=== PATIENT | male | born 1980 | race Caucasian/White ===

== ENCOUNTER 2017-11-19 11:46 | Emergency (ER) | payer OTHER ==
[2017-11-19 11:54] VITALS: PULSE 62; RESP 16; TEMP 98.4
[2017-11-19] MEDS ORDERED: RIVAROXABAN 15 MG TAB PO ONE (13:06)
--- NOTE | 2017-11-19 13:06 | EDPHY ---
H & P Stated Complaint: l knee inj 11/10 now with dvt l calf Time Seen by Provider: 11/19/17 13:01 HPI/ROS: CHIEF COMPLAINT: DVT HISTORY OF PRESENT ILLNESS: The patient is a 37-year-old man who works at the [employer]. He had an injury on the causing ACL and MCL tear in his knee. He has been wearing a brace. He has developed some left calf pain and was seen at [facility] today and had an ultrasound that revealed a DVT. He was sent here for treatment. He denies chest pain or shortness of breath. He denies any other significant medical history. REVIEW OF SYSTEMS: Constitutional: denies: chills, fever, recent illness, recent injury EENTM: denies: blurred vision, double vision, nose congestion Respiratory: denies: cough, shortness of breath Cardiac: denies: chest pain, irregular heart rate, lightheadedness, palpitations Gastrointestinal/Abdominal: denies: abdominal pain, diarrhea, nausea, vomiting, blood streaked stools Genitourinary: denies: dysuria, frequency, hematuria, pain Musculoskeletal: See HPI Skin: denies: lesions, rash, jaundice, bruising Neurological: denies: headache, numbness, paresthesia, tingling, dizziness, weakness Hematologic/Lymphatic: denies: blood clots, easy bleeding, easy bruising Immunologic/allergic: denies: HIV/AIDS, transplant EXAM: GENERAL: Well-appearing, well-nourished and in no acute distress. HEAD: Atraumatic, normocephalic. EYES: Pupils equal round and reactive to light, extraocular movements intact, sclera anicteric, conjunctiva are normal. ENT: TMs normal, nares patent, oropharynx clear without exudates. Moist mucous membranes. NECK: Normal range of motion, supple without lymphadenopathy or JVD. LUNGS: Breath sounds clear to auscultation bilaterally and equal. No wheezes rales or rhonchi. HEART: Regular rate and rhythm without murmurs, rubs or gallops. ABDOMEN: Soft, nontender, normoactive bowel sounds. No guarding, no rebound. No masses appreciated. BACK: No CVA tenderness, no spinal tenderness, step-offs or deformities EXTREMITIES: Left calf pain and mild swelling. Mild pain and swelling at the knee as well which is baseline since his injury. NEUROLOGICAL: Cranial nerves II through XII grossly intact. Normal speech, normal gait. 5/5 strength, normal movement in all extremities, normal sensation PSYCH: Normal mood, normal affect. SKIN: Warm, dry, normal turgor, no visible rashes or lesions. Source: Patient Exam Limitations: No limitations - Personal History Current Tetanus/Diphtheria Vaccine: Yes - Medical/Surgical History Hx Asthma: No Hx Chronic Respiratory Disease: No Hx Diabetes: No Hx Cardiac Disease: No Hx Renal Disease: No Hx Cirrhosis: No Hx Alcoholism: No Hx HIV/AIDS: No Hx Splenectomy or Spleen Trauma: No Other PMH: l shoulder surd/appy - Family History Significant Family History: No pertinent family hx - Social History Smoking Status: Former smoker Alcohol Use: Sober Drug Use: None Constitutional: Initial Vital Signs Temperature (C) 36.9 C 11/19/17 11:51 Heart Rate 62 11/19/17 11:51 Respiratory Rate 16 11/19/17 11:51 Blood Pressure 118/75 11/19/17 11:51 O2 Sat (%) 98 11/19/17 11:51 O2 Delivery Mode Room Air Allergies/Adverse Reactions: No Known Allergies Allergy (Unverified 11/19/17 11:49) Home Medications: Medication Instructions Recorded IBUPROFEN 11/19/17 Rivaroxaban [Xarelto 15mg (*)] 15 mg PO BID #40 tab 11/19/17 Medical Decision Making ED Course/Re-evaluation: Will review the patient's images. He brought a DVT. I will start him on Xarelto until he follows up with his [facility] doctors and Orthopedics. 2:00 p.m. we discussed the patient's lab results. I will start him on Xarelto. He will likely need to transition to Lovenox prior to knee surgery which is planned for 1 month from now but I told him to have a discussion about this with his surgeon who will be Dr. Meyer. He understands and agrees with this plan. Differential Diagnosis: Partial list of the Differential diagnosis considered include but were not limited to; DVT, contusion and although unlikely based on the history and physical exam, I also considered infection, vascular injury. I discussed these differential diagnoses and the plan with the patient as well as the usual and expected course. The patient understands that the diagnosis is provisional and that in medicine we are not always correct and that further workup is often warranted. Usual and customary warnings were given. All of the patient's questions were answered. The patient was instructed to return to the emergency department should the symptoms at all worsen or return, otherwise to followup with the physician as we discussed. - Data Points Laboratory Results: Laboratory Results 11/19/17 13:10 11/19/17 13:10 11/19/17 11/19/17 11/19/17 14:23 13:10 13:10 WBC 5.98 10^3/uL 10^3/uL (3.80-9.50) RBC 5.34 10^6/uL 10^6/uL (4.40-6.38) Hgb 15.4 g/dL g/dL (13.7-17.5) Hct 44.8 % % (40.0-51.0) MCV 83.9 fL fL (81.5-99.8) MCH 28.8 pg pg (27.9-34.1) MCHC 34.4 g/dL g/dL (32.4-36.7) RDW 12.8 % % (11.5-15.2) Plt Count 292 10^3/uL 10^3/uL (150-400) MPV 9.5 fL fL (8.7-11.7) Neut % (Auto) 59.6 % % (39.3-74.2) Lymph % (Auto) 28.8 % % (15.0-45.0) [place] % (Auto) 9.4 % % (4.5-13.0) Eos % (Auto) 1.5 % % (0.6-7.6) Baso % (Auto) 0.5 % % (0.3-1.7) Nucleat RBC Rel Count 0.0 % % (0.0-0.2) Absolute Neuts (auto) 3.57 10^3/uL 10^3/uL (1.70-6.50) Absolute Lymphs (auto) 1.72 10^3/uL 10^3/uL (1.00-3.00) Absolute Monos (auto) 0.56 10^3/uL 10^3/uL (0.30-0.80) Absolute Eos (auto) 0.09 10^3/uL 10^3/uL (0.03-0.40) Absolute Basos (auto) 0.03 10^3/uL 10^3/uL (0.02-0.10) Absolute Nucleated RBC 0.00 10^3/uL 10^3/uL (0-0.01) Immature Gran % 0.2 % % (0.0-1.1) Immature Gran # 0.01 10^3/uL 10^3/uL (0.00-0.10) PT 14.0 SEC SEC (12.0-15.0) INR 1.06 (0.83-1.16) APTT 28.5 SEC SEC (23.0-38.0) Sodium 144 mEq/L mEq/L (134-144) Potassium 4.5 mEq/L mEq/L (3.5-5.2) Chloride 109 mEq/L mEq/L (97-110) Carbon Dioxide 22 mEq/l mEq/l (22-31) Anion Gap 13 mEq/L mEq/L (8-16) BUN 14 mg/dL mg/dL (7-23) Creatinine 0.6 mg/dL L mg/dL (0.7-1.3) Estimated GFR > 60 Glucose 82 mg/dL mg/dL (70-100) Calcium 9.8 mg/dL mg/dL (8.5-10.4) Total Bilirubin 0.4 mg/dL mg/dL (0.1-1.4) Conjugated Bilirubin 0.2 mg/dL mg/dL (0.0-0.5) Unconjugated Bilirubin 0.2 mg/dL mg/dL (0.0-1.1) AST 30 IU/L IU/L (17-59) ALT 48 IU/L IU/L (21-72) Alkaline Phosphatase 71 IU/L IU/L (38-126) Total Protein 6.8 g/dL g/dL (6.3-8.2) Albumin 4.1 g/dL g/dL (3.5-5.0) Medications Given: Discontinued Medications Rivaroxaban (Xarelto) 15 mg PO EDNOW ONE Stop: 11/19/17 13:07 Last Admin: 11/19/17 14:11 Dose: 15 mg Departure - Departure Disposition: Home, Routine, Self-Care Clinical Impression: Left leg DVT Qualifiers: Affected thrombotic vein of extremity: unspecified lower extremity distal vein Chronicity: acute Qualified Code(s): I82.4Z2 - Acute embolism and thrombosis of unspecified deep veins of left distal lower extremity Condition: Fair Instructions: Deep Vein Thrombosis (ED) Referrals: Maria A Jasso MD [Primary Care Provider] - As per Instructions Martin Meyer MD [Medical Doctor] - As per Instructions Prescriptions: Rivaroxaban [Xarelto 15mg (*)] 15 mg PO BID #40 tab
[2017-11-19 13:21] LABS: PLATELET COUNT 292 10^3/uL (150-400)
[2017-11-19 14:38] VITALS: BP 115/72; O2SAT 99
[2017-11-19 14:58] LABS: INR 1.06 (0.83-1.16)
== END 2017-11-19 15:24 | disposition home or self-care (01) ==
DX: I82.4Z2 Acute embolism and thrombosis of unspecified deep veins of left distal lower extremity (principal); Z87.891 Personal history of nicotine dependence

== ENCOUNTER 2017-11-26 10:46 | Emergency (ER) | payer OTHER ==
[2017-11-26 10:56] VITALS: BP 131/76; PULSE 67; RESP 16; TEMP 98.6; O2SAT 97
--- NOTE | 2017-11-26 11:00 | EDPHY ---
H & P Stated Complaint: Sob, x 2 days, fever, chest congestion, pcp sent r/o PE Time Seen by Provider: 11/26/17 10:59 - Personal History Current Tetanus/Diphtheria Vaccine: Unsure Current Tetanus Diphtheria and Acellular Pertussis (TDAP): Unsure - Medical/Surgical History Hx Asthma: No Hx Chronic Respiratory Disease: No Hx Diabetes: No Hx Cardiac Disease: No Hx Renal Disease: No Hx Cirrhosis: No Hx Alcoholism: No Hx HIV/AIDS: No Hx Splenectomy or Spleen Trauma: No Other PMH: l shoulder surd/appy. dvt 12/01, torn acl/mcl, stable tibial fx 12/01 - Social History Smoking Status: Former smoker Constitutional: Initial Vital Signs Temperature (C) 37.0 C 11/26/17 10:50 Heart Rate 67 11/26/17 10:50 Respiratory Rate 16 11/26/17 10:50 Blood Pressure 131/76 H 11/26/17 10:50 O2 Sat (%) 97 11/26/17 10:50 O2 Delivery Mode Room Air Allergies/Adverse Reactions: No Known Allergies Allergy (Unverified 11/19/17 11:49) Home Medications: Medication Instructions Recorded Rivaroxaban [Xarelto 15mg (*)] 15 mg PO BID #40 tab 11/19/17 Medical Decision Making - Diagnostics Imaging: Discussed imaging studies w/ maxillofacial prosthetics dentist Radiologist, I viewed and interpreted images myself ED Course/Re-evaluation: CHIEF COMPLAINT: Cough, PE rule out HISTORY OF PRESENT ILLNESS: The patient is a 37 y/o male arriving with his complaining of a cough and here at the referral of his orthopedist for PE rule out. The patient had a knee injury on 11/10/17, about 3 weeks ago, and 1 week he was diagnosed with a DVT. He was started on Xarelto for this and has been taking it as prescribed. On Wednesday, 5 days ago, he developed a mild cough without hemoptysis. He had a fever the next two days that has since resolved. He believes he has a cold. He denies dyspnea, chest pain, tachycardia. He saw his orthopedist today for scheduled follow up and was referred to the ED for PE rule out despite infectious symptoms and full anticoagulation status. Patient does not believe he had a hypercoagulation panel run previously. He is normally healthy. REVIEW OF SYSTEMS: A 10 point review of systems was performed and is negative with the exception of the elements mentioned in the history of present illness. PHYSICAL EXAM: HR, BP, O2 Sat, RR. Temp noted General Appearance: Alert, well hydrated, appropriate, and non-toxic appearing. Head: Atraumatic without scalp tenderness or obvious injury Eyes: Pupils equal, round, reactive to light and accommodation, EOMI, no trauma , no injection. Nose: Atraumatic, no rhinorrhea, clear. Throat: Mucus membranes moist. Neck: Supple Respiratory: No retractions, no distress, no wheezes, and no accessory muscle use. Lungs are clear to auscultation bilaterally. Cardiovascular: Regular rate and rhythm, no murmurs, rubs, or gallops. Good capillary refill all extremities. Gastrointestinal: Abdomen is soft, nontender, non-distended, no masses, no rebound, no guarding, no peritoneal signs. Musculoskeletal: Normal active ROM of all extremities, atraumatic. Left leg in brace. Neurological: Alert, appropriate, and interactive. The patient has non-focal cranial nerves, motor, sensory, and cerebellar exam. Skin: No rashes, good turgor, no nodules on palpation. Past medical history: DVT following leg injury, torn ACL/MCL and tibial fracture Past surgical history: Shoulder surgery, appendectomy Family history: Noncontributory Social history: at bedside. DIAGNOSTICS/PROCEDURES/CRITICAL CARE TIME: Chest CTA: no PE DIFFERENTIAL DIAGNOSIS: The differential diagnosis for the patient's cough included but was not limited to bronchitis, URI, pneumonia, viral syndrome, PE. MEDICAL DECISION MAKING: This is a healthy 37 y/o male who presents with a one-week history of cough for evaluation of possible PE following leg injury and recent DVT diagnosis. He is fully anticoagulated on Xarelto. His exam is unremarkable. Plan for IV, ISTAT, hypercoag panel, and chest CTA as requested by his orthopedist. Hypercoag panel pending. CTA is negative for PE. Patient will be discharged home with standard cough and URI care and follow up instructions. - Data Points Laboratory Results: 11/26/17 11/26/17 11/26/17 11:20 11:20 11:12 POC Hgb 16.0 gm/dL gm/dL (13.7-17.5) POC Hct 47 % % (40-51) PT 19.7 SEC H SEC (12.0-15.0) INR 1.66 H (0.83-1.16) APTT 36.0 SEC SEC (23.0-38.0) Fibrinogen 414 mg/dL mg/dL (214-456) D-Dimer 0.36 ug/mLFEU ug/mLFEU (0.00-0.50) Protein C Activity Pending Protein S Activity Pending Antithrombin III Activ Pending Factor V Leiden Mutat Pending Factor V Leiden Interp Pending Fact V Leiden Review By Pending POC Sodium 142 mEq/L mEq/L (135-145) POC Potassium 3.9 mEq/L mEq/L (3.3-5.0) POC Chloride 106 mEq/L mEq/L (97-110) POC BUN 20 mg/dL mg/dL (7-23) POC Creatinine 0.6 mg/dL L mg/dL (0.7-1.3) POC Glucose 95 mg/dL mg/dL (70-100) Anti-Cardiolipin IgG Ab Pending Anti-Cardiolipin IgM Ab Pending Medications Given: Discontinued Medications Albuterol/Ipratropium (Duoneb) 3 ml IH EDNOW ONE Stop: 11/26/17 11:11 Last Admin: 11/26/17 11:16 Dose: 3 ml Point of Care Test Results: 11/26/17 11:12 POC Sodium 142 POC Potassium 3.9 POC Chloride 106 POC BUN 20 POC Creatinine 0.6 L POC Glucose 95 Departure - Departure Disposition: Home, Routine, Self-Care Clinical Impression: Cough Condition: Good Instructions: Acute Cough (ED) Additional Instructions: Follow up with your primary care provider for unimproved symptoms over the next 3-5 days. Return to the ED for chest pain, shortness of breath, or other worsening of condition. Referrals: Maria A Jasso MD [Primary Care Provider] - As per Instructions Report Scribed for: Ata Smiley Report Scribed by: Migdalia Her Date of Report: 11/26/17 Time of Report: 11:20
[2017-11-26] MEDS ORDERED: IPRATROPIUM/ALBUTEROL 3 ML DEYVIAL IH ONE (11:10)
[2017-11-26] MEDS ORDERED: IOPAMIDOL (ISOVUE 370) 100 ML BTL IV ONE (11:37)
[2017-11-26 11:40] LABS: INR 1.66 (0.83-1.16); PROTIME(PATIENT) 19.7 SEC (12.0-15.0)
== END 2017-11-26 12:43 | disposition home or self-care (01) ==
DX: R05 Cough (principal); Z79.01 Long term (current) use of anticoagulants; Z87.891 Personal history of nicotine dependence
CPT/HCPCS: 82947-QW; 85300-90; 85303-90; 85306-90; 86147-90; Q9967